=== PATIENT | female | born 1970 | race Caucasian/White ===

== ENCOUNTER → 2021-05-29 | Outpatient (CLI) | payer OTHER ==
--- NOTE | 2021-05-29 14:42 | RAD ---
EXAM: NUCLEAR GASTRIC EMPTYING SCAN. HISTORY: Nausea/vomiting. COMPARISON: None. TECHNIQUE: Serial static images were obtained over the stomach following oral administration of 2.0 m Ci of 99m-Tc sulfur colloid in a solid meal. FINDINGS: The stomach appears normal in contour. There is clearance of activity into the small bowel. The remaining fraction of gastric activity is as follows. 1 hour 43% (normal range 34.8-91%) 2 hour 17% (normal range 2.7-60%) 3 hour 5% (normal range 0.5-28%) 4 hour 1% (normal range 0-10%) IMPRESSION: 1. Normal gastric emptying. Electronically signed by: Dex Ruvalcaba MD (05/29/2021 2:40 PM) [id number]
== END ==
LOC: NM 09:27
PROVIDERS: ATTEND Internal Medicine Gastroenterology
DX: K31.84 Gastroparesis (principal)
CPT/HCPCS: 78264; A9541